=== PATIENT | male | born 1945 | race Caucasian/White ===

== ENCOUNTER 2021-06-03 20:18 | Inpatient (IN) | payer OTHER, MEDICARE ==
[~2021-06-03] VITALS: Ht 172.7 cm; Wt 106.7 kg
[2021-06-03 21:28] LABS: BASOPHILS % (AUTO) 0.6 % (0-1); EOSINOPHILS # (AUTO) 0.2 X10'3 (0-0.9); EOSINOPHILS % (AUTO) 3.3 % (0-6); HEMOGLOBIN 13.4 g/dl (14.0-17.9); LYMPHOCYTES # (AUTO) 1.6 X10'3 (1.1-4.8); LYMPHOCYTES % (AUTO) 22.4 % (21-51); MEAN CORPUSCULAR HEMOGLOBIN 28.5 PG (27.0-31.0); MEAN CORPUSCULAR HGB CONC 32.7 g/dL (33.0-36.5); MEAN PLATELET VOLUME 9.5 FL (7.4-10.4); MONOCYTES # (AUTO) 0.7 X10'3 (0-0.9); MONOCYTES % (AUTO) 10.6 % (2-12); NEUTROPHILS # (AUTO) 4.4 X10'3 (1.8-7.7); NEUTROPHILS % (AUTO) 63.1 % (42-75); PLATELET COUNT 176 X10'3 (140-440); RED BLOOD COUNT 4.72 X10'6 (4.70-6.10); RED CELL DISTRIBUTION WIDTH 14.9 % (11.5-14.5)
[2021-06-03 21:42] LABS: ALANINE AMINOTRANSFERASE 33 U/L (12-78); ALBUMIN/GLOBULIN RATIO 1.3 (1.1-1.5); ALKALINE PHOSPHATASE 86 IU/L (46-116); ANION GAP 8 (8-16); ASPARTATE AMINO TRANSFERASE 24 U/L (10-37); BILIRUBIN,TOTAL 0.4 MG/DL (0.1-1.0); BLOOD UREA NITROGEN 32 MG/DL (7-18); BUN/CREATININE RATIO 21.6 (5.4-32.0); CALCIUM 8.9 MG/DL (8.5-10.1); CHLORIDE 106 MMOL/L (99-107); CREATININE 1.48 MG/DL (0.60-1.10); GLUCOSE 110 MG/DL (70-104); SODIUM 142 MMOL/L (135-145); TOTAL CARBON DIOXIDE 27.7 MMOL/L (24-32); eGFR 46 ML/MIN
[2021-06-03 23:18] LABS: D-DIMER 0.47 MG/L FEU (0-0.50)
[2021-06-04] MEDS ORDERED: potassium CL 10mEq/100ml bag 100 ML IV PRN (00:25)
[2021-06-04] MEDS ORDERED: potassium Cl 20 mEq SR tablet PO PRN (00:25)
[2021-06-04] MEDS ORDERED: acetaminophen 325mg tablet PO PRN (00:25)
[2021-06-04] MEDS ORDERED: ondansetron/PF 4mg/2ml inj IV PRN (00:25)
[2021-06-04] MEDS: normal saline 1000ml 1,000 ML IV SCH ×2 (00:25→17:19)
[2021-06-04] MEDS ORDERED: PERFLUTREN PROTEIN-A MICROSPHR (Optison) 0.22 MG/ML 3ML VIAL IV PRN (00:25)
[2021-06-04] MEDS ORDERED: mag hydrox/Alum hydrox/simeth 30ml oral suspension PO PRN (00:25)
[2021-06-04] MEDS ORDERED: magnesium hydroxide 30ml (MOM) UD suspension PO PRN (00:25)
[2021-06-04] MEDS ORDERED: magnesium 2GM in 50ml NS 50 ML IV PRN (00:25)
[2021-06-04] MEDS ORDERED: magnesium 4gm in 100ml NS 100 ML IV PRN (00:25)
[2021-06-04 04:04] LABS: MAGNESIUM 1.8 MG/DL (1.5-2.4); POTASSIUM 3.6 MMOL/L (3.5-5.1)
[2021-06-04] MEDS: heparin, porcine 5000 units/ml vial SQ SCH ×2 (08:00→20:41)
[2021-06-04] MEDS: docusate sod 100mg capsule PO SCH ×2 (08:00→20:40)
[2021-06-04] MEDS: K and/or MAG REPLACEMENT MC SCH ×2 (08:00→20:00)
[2021-06-04] MEDS ORDERED: ATOR-2 PO (11:32)
[2021-06-04] MEDS ORDERED: BUPR-353 PO (11:33)
[2021-06-04] MEDS ORDERED: TRAZ-256 PO (12:40)
[2021-06-04] MEDS ORDERED: HYDR-3965 PO (12:40)
[2021-06-04] MEDS ORDERED: BUSP15TA8 PO (12:40)
[2021-06-04] MEDS ORDERED: GABA300C PO (12:40)
[2021-06-04] MEDS ORDERED: METO-395 PO (12:40)
[2021-06-04] MEDS ORDERED: ALBU8.5H17 IH (12:40)
[2021-06-04] MEDS ORDERED: PRAZ5CAP2 PO (12:40)
[2021-06-04] MEDS ORDERED: LISI20TA28 PO (12:40)
[2021-06-04] MEDS ORDERED: FLUO40CA10 PO (12:40)
[2021-06-04 16:00] VITALS: BP 147/78
[2021-06-04] MEDS ORDERED: HYDROcodone/acetaminophen 5mg/325mg tablet PO PRN (16:25)
[2021-06-04] MEDS ORDERED: traZODone 50mg tablet PO PRN (16:30)
[2021-06-04] MEDS ORDERED: albuterol 2.5 MG/3 ML nebule NEB PRN (16:30)
[2021-06-04 18:00] VITALS: BP 141/66
--- NOTE | 2021-06-04 18:00 | NUR ---
Oriente documentation: I have reviewed and agree with all interventions, assessments performed and documented by [facility] RN.
--- NOTE | 2021-06-04 18:25 | NUR ---
Problems reprioritized. Patient report given, questions answered & plan of care reviewed with La CLAY.
--- NOTE | 2021-06-04 18:55 | NUR ---
Patient in room PCU 3028. I have received report from [facility] Dunn and had the opportunity to ask questions and assume patient care.
[2021-06-04 20:00] VITALS: BP_SYST 118; BP_SYST 123; BP_SYST 135; BP_DIAS 69; BP_DIAS 72; BP_DIAS 74
[2021-06-04] MEDS: busPIRone 15mg tablet PO SCH (20:40)
[2021-06-04] MEDS: buPROPion SR 150mg tablet PO SCH (20:40)
[2021-06-04] MEDS: metoprolol tartrate 25mg tablet PO SCH (20:41)
[2021-06-04 22:00] VITALS: BP 138/77
[2021-06-04] MEDS: potassium Cl 20 mEq SR tablet PO PRN (22:12)
[2021-06-04] MEDS: magnesium Cl slow-release 64mg tablet PO PRN (22:13)
[2021-06-05] MEDS: potassium Cl 20 mEq SR tablet PO PRN ×3 (00:17→05:45)
[2021-06-05 02:00] VITALS: BP 140/70
[2021-06-05 06:00] VITALS: BP 147/77
[2021-06-05 06:09] LABS: BASOPHILS % (AUTO) 0.6 % (0-1); EOSINOPHILS # (AUTO) 0.2 X10'3 (0-0.9); EOSINOPHILS % (AUTO) 3.3 % (0-6); HEMATOCRIT 38.9 % (42.0-52.0); HEMOGLOBIN 12.9 g/dl (14.0-17.9); LYMPHOCYTES # (AUTO) 1.7 X10'3 (1.1-4.8); MEAN CORPUSCULAR HEMOGLOBIN 28.8 PG (27.0-31.0); MEAN CORPUSCULAR HGB CONC 33.2 g/dL (33.0-36.5); MEAN CORPUSCULAR VOLUME 86.8 FL (78-98); MEAN PLATELET VOLUME 9.9 FL (7.4-10.4); MONOCYTES # (AUTO) 0.6 X10'3 (0-0.9); MONOCYTES % (AUTO) 9.7 % (2-12); NEUTROPHILS # (AUTO) 3.9 X10'3 (1.8-7.7); NEUTROPHILS % (AUTO) 60.4 % (42-75); PLATELET COUNT 164 X10'3 (140-440); RED BLOOD COUNT 4.49 X10'6 (4.70-6.10); RED CELL DISTRIBUTION WIDTH 14.7 % (11.5-14.5); WHITE BLOOD COUNT 6.5 X10'3 (4.5-11.0)
--- NOTE | 2021-06-05 06:12 | NUR ---
Patient in room PCU 3028. I have received report from Duncan CLAY and had the opportunity to ask questions and assume patient care.
--- NOTE | 2021-06-05 06:15 | NUR ---
Problems reprioritized. Patient report given, questions answered & plan of care reviewed with Mona RN and [facility] White.
[2021-06-05 06:27] LABS: ALANINE AMINOTRANSFERASE 28 U/L (12-78); ALBUMIN 3.3 G/DL (3.4-5.0); ALBUMIN/GLOBULIN RATIO 1.2 (1.1-1.5); ALKALINE PHOSPHATASE 74 IU/L (46-116); ANION GAP 8 (8-16); ASPARTATE AMINO TRANSFERASE 19 U/L (10-37); BILIRUBIN,TOTAL 0.6 MG/DL (0.1-1.0); BLOOD UREA NITROGEN 20 MG/DL (7-18); BUN/CREATININE RATIO 17.7 (5.4-32.0); CHLORIDE 110 MMOL/L (99-107); CREATININE 1.13 MG/DL (0.60-1.10); GLUCOSE 99 MG/DL (70-104); POTASSIUM 4.2 MMOL/L (3.5-5.1); SODIUM 143 MMOL/L (135-145); TOTAL CARBON DIOXIDE 25.3 MMOL/L (24-32); eGFR 63 ML/MIN
--- NOTE | 2021-06-05 06:30 | NUR ---
Patient in room PCU 3028. I have received report from [facility] Tovar and had the opportunity to ask questions and assume patient care.
[2021-06-05 07:57] LABS: MAGNESIUM 1.8 MG/DL (1.5-2.4)
[2021-06-05] MEDS ORDERED: FLUoxetine 20mg capsule PO SCH (08:00)
[2021-06-05] MEDS: docusate sod 100mg capsule PO SCH (08:00)
[2021-06-05] MEDS: K and/or MAG REPLACEMENT MC SCH (08:00)
[2021-06-05] MEDS ORDERED: atorvastatin 20mg tablet PO SCH (08:00)
[2021-06-05] MEDS: normal saline 1000ml 1,000 ML IV SCH (08:28)
[2021-06-05] MEDS: heparin, porcine 5000 units/ml vial SQ SCH (08:29)
[2021-06-05] MEDS: busPIRone 15mg tablet PO SCH (08:30)
[2021-06-05] MEDS: buPROPion SR 150mg tablet PO SCH (08:31)
[2021-06-05] MEDS: gabapentin 300mg capsule PO SCH ×2 (08:31)
[2021-06-05] MEDS: metoprolol tartrate 25mg tablet PO SCH (08:32)
[2021-06-05] MEDS: magnesium Cl slow-release 64mg tablet PO PRN (08:52)
[2021-06-05] MEDS ORDERED: POTA8CAP20 PO (10:33)
[2021-06-05] MEDS ORDERED: MAGN64TA8 PO (10:33)
[2021-06-05] MEDS ORDERED: LOP25T PO (10:33)
[2021-06-05 11:00] VITALS: BP 134/71
--- NOTE | 2021-06-05 12:00 | NUR ---
Pt discharged to home from the hospital. Discharge paperwork reviewed and signed by the patient with this poem writer. The patient and their spouse were able to ask questions prior to discharge. Belongings were returned to the patient. All prescriptions were sent to the patient's pharmacy of choice. No home medications were brought into the hospital by the patient. PIV and telemetry removed at the time of discharge.
--- NOTE | 2021-06-05 12:00 | NUR ---
Oriente documentation: I have reviewed and agree with all interventions, assessments performed and documented by [facility] RN.
== END 2021-06-05 12:00 | disposition home or self-care (01) | DRG 308 ==
LOC: ER 20:19 → ED HOLD 06-04 00:22 → UNDOADMIN 06-04 00:22 → ED HOLD 06-04 00:24 → EDBEDREQ 06-04 13:52 → ED HOLD 06-04 15:54 → PCU 3S 06-04 15:54
PROVIDERS: ADMIT Internal Medicine; ATTEND Family Medicine
DX: I49.8 Other specified cardiac arrhythmias (principal); N17.0 Acute kidney failure with tubular necrosis; I24.9 Acute ischemic heart disease, unspecified; G47.30 Sleep apnea, unspecified; I12.9 Hypertensive chronic kidney disease with stage 1 through stage 4 chronic kidney disease, or unspecified chronic kidney disease; N18.9 Chronic kidney disease, unspecified; E78.5 Hyperlipidemia, unspecified; Z96.659 Presence of unspecified artificial knee joint; M19.90 Unspecified osteoarthritis, unspecified site; R00.2 Palpitations; Z88.8 Allergy status to other drugs, medicaments and biological substances
CPT/HCPCS: 36415; 70450; 71045; 80053; 83735; 83880; 84132; 84484; 85025; 85379; 87081; 93005; 93306; 93880; 99285; G0378; J1644; J7030